=== PATIENT | male | born 1985 | race Two or more races ===

== ENCOUNTER 2024-06-22 12:09 | Emergency (ER) | payer MEDICAID, SELFPAY ==
[2024-06-22 12:17] VITALS: BP 110/76; PULSE 76; RESP 18; TEMP 36.6; O2SAT 98; BMI 26.4
--- NOTE | 2024-06-22 12:23 | EDNOTE_ITS ---
ED Medical Clearance RME/HPI General Chief complaint: GI Bleed Stated complaint: MEDICAL CLEARANCE Time Seen by Provider: 06/22/24 12:14 Arrival date/time: 06/22/24 12:09 RME / HPI RME / HPI Narrative: This section includes all my notes and documentations, including HPI, PE, and ED course.? Elroy Reaves MD HPI: 39 year old male with no stated medical history presents to the ED BIB [facility] for medical clearance today. Patient reports bright red blood on tissues for about a month after wiping. Denies any associated abdominal pain, nausea, vomiting, or diarrhea. Denies taking medications on a daily basis, use of NSAIDs or blood thinners. Here for medical clearance for senior living. No other complaints. ROS: All negative except as documented in HPI. Physical Exam: General:? Alert and oriented.??No acute distress. Eyes:? Conjunctivae and lids clear.?? ENT:? No nasal congestion.?? Neck:? Supple.?? Lungs:? No respiratory distress.?? Abdomen:? Soft and nontender.?? Rectal: External hemorrhoids noted, not thrombosed. Skin:? Warm and dry.?? Neuro:? Alert and oriented X 3.?? I reviewed all diagnostic test results. Blood tests unremarkable. At this point, diagnoses include?hemorrhoids. Recommended conservative treatment and more outpatient workup. Based on my best medical judgment, made decision to medically cleared the patient for senior living and no further evaluation or treatment indicated at this time.? Patient understands and agrees to the discharge instructions customized and printed, see below. Discharge instructions from Dr. Reaves: ?After evaluation, your symptoms are due to hemorrhoids.? There is no emergency. ?Use Anusol suppositories as prescribed to help heal your hemorrhoids. ?During bowel movements, avoid pushing too hard which can cause hemorrhoids. ?To help prevent hard stools, increase oral fluid and maintain clear urine (if dark or yellow, increase oral fluid).? And increase every day exercising and eating fresh fruits and fresh vegetables. ?See a private doctor on 06/24/2024 or whenever you are released from senior living for recheck and further care. To make sure there is no serious intra-abdominal condition, ask for help with more investigation not available here in the ER. Such as EGD or scoping the stomach, colonoscopy or scoping the colon, and referral to see systems analyst developer. ?Seek immediate medical care with worsening or with any concerns. Related Information Previous Rx's ?Medication ?Instructions ?Recorded hydrocortisone acetate 25 mg 25 mg SC BID #24 ea 06/22 rectal suppository (Anusol-HC) Allergies Allergy/AdvReac Type Severity Reaction Status Date / Time aspirin Allergy Intermediate Swelling Verified 06/22/24 12:37 of Lip/Tongue/Throat Review of Systems Review of Systems Systems Reviewed: All systems reviewed, normal except as documented ED Exam Narrative Physical exam: As noted in HPI Course Quality Measures none Orders Category Date Time Status CBC Stat Lab 06/22/24 13:04 Completed CMP [Comprehensive Metabolic Panel] Stat Lab 06/22/24 13:04 Completed Magnesium Stat Lab 06/22/24 13:04 Completed Path Review Blood Smear Stat Lab 06/22/24 13:04 Completed Vital Signs Vital signs: Vital Signs Temperature 98 F 06/22/24 12:17 Pulse Rate 76 06/22/24 12:17 Respiratory Rate 18 06/22/24 12:17 Blood Pressure 110/76 06/22/24 12:17 Pulse Oximetry (%) 98 06/22/24 12:17 Oxygen Delivery Method Room Air 06/22/24 12:17 Pulse ox is 98% on room air which is adequate. Medical Clearance MDM Narrative MDM Narrative:: Moriah Frazier am scribing for and in the presence of Dr. Reaves. Patient data External records reviewed:: [facility] previous records (Per EMR review, no previous visits for review) Clinical information provided by:: patient and law enforcement ([employer] ) Social determinants that could affect healthcare access:: none Patient has the following chronic illnesses:: None How is presenting disease/condition affected by chronic disease/condition?: no chronic disease Evaluation data The following diagnostics were reviewed and interpreted by me:: lab results Lab and/or radiology exams considered but not ordered:: None Interpretation Summary: Normal diagnostics Medications / Prescriptions Medications or Prescriptions considered but not ordered:: none Medication administrations:: None Consultations Consultation(s) initiated? (list below): No Diagnosis Medical Clearance Differential Diagnosis: other (Hemorrhoids, rectal bleeding, GI bleed) Most likely diagnosis given after review of the tests above:: Hemorrhoids Admission Indicated Admission indicated?: not indicated Explain why admission is indicated or not indicated:: Does not meet admission criteria Admission Request Was there a request for admission?: No Disposition Plan Disposition Plan: Discharge Discharge Attestation Discharge Attestation: The patient and all family members were given an opportunity to ask questions and understood the discharge instructions. Discharge instructions specifically effects, indications for sooner follow up or return to the emergency department, and the expected course of current diagnosis. Patient condition: Stable Discharge Plan Plan Patient Disposition: [facility]/Court/Law Patient condition on transfer: Stable Prescriptions/Referrals Prescriptions/Med Rec: New hydrocortisone acetate [Anusol-HC] 25 mg suppository 25 mg SC BID Qty: 24 0RF Referrals: No Primary/Family,Physician [Primary Care Provider] - In 1 week Problem List Clinical Impression: Hemorrhoids Patient/Caregiver Discharge Instructions Discharge Activity: activity as tolerated Education Materials: ED Hemorrhoids Additional Instructions: Discharge instructions from Dr. Reaves: ?After evaluation, your symptoms are due to hemorrhoids.? There is no emergency. ?Use Anusol suppositories as prescribed to help heal your hemorrhoids. ?During bowel movements, avoid pushing too hard which can cause hemorrhoids. ?To help prevent hard stools, increase oral fluid and maintain clear urine (if dark or yellow, increase oral fluid).? And increase every day exercising and eating fresh fruits and fresh vegetables. ?See a private doctor on 06/24/2024 or whenever you are released from senior living for recheck and further care. To make sure there is no serious intra-abdominal condition, ask for help with more investigation not available here in the ER. Such as EGD or scoping the stomach, colonoscopy or scoping the colon, and referral to see systems analyst developer. ?Seek immediate medical care with worsening or with any concerns. Print Language: Japanese
[2024-06-22 12:57] VITALS: BP 109/72; PULSE 70; RESP 17; TEMP 37.3; O2SAT 98
[2024-06-22 13:14] LABS: Basophils % (Auto) 0 % (0-2.5); Eosinophils % (Auto) 0 % (0-10); Hematocrit 41.8 % (41.0-53.0); Hemoglobin 13.3 g/dL (13.5-16.0); Immature Granulocytes % (Auto) 0 % (0-0); Immature Granulocytes Auto 0.04 Thou/mm3 (0.00-0.00); Lymphocytes # (Auto) 0.9 Thou/mm3 (1.0-4.8); Lymphocytes % (Auto) 8 % (10-50); Mean Corpuscular HGB Conc 31.8 g/dl (31.0-37.0); Mean Corpuscular Hemoglobin 19.2 pg (25.0-35.0); Mean Corpuscular Volume 60 fL (80-100); Monocytes # (Auto) 0.8 Thou/mm3 (0.0-0.8); Monocytes % (Auto) 7 % (0-12); Neutrophils # (Auto) 10.5 Thou/mm3 (1.8-7.7); Neutrophils % (Auto) 85 % (37-80); Nucleated Red Blood Cell % 0 /100 WBC (0); Platelet Count 309 Thou/mm3 (140-440); RDW Standard Deviation 31.1 fL (35.1-43.9); Red Blood Count 6.94 Miln/mm3 (4.50-5.90); White Blood Count 12.4 Thou/mm3 (3.8-10.6)
[2024-06-22 13:37] LABS: Alanine Aminotransferase 19 U/L (10-49); Albumin, Serum 4.3 gm/dL (3.5-5.0); Albumin/Globulin Ratio 1.7 (1.2-2.2); Alkaline Phosphatase 60 U/L (46-116); Anion Gap 6 (7-16); Aspartate Amino Transferase 20 U/L (0-34); BUN/Creatinine Ratio 9 Ratio (12-20); Bilirubin,Total 0.5 mg/dL (0.3-1.2); Blood Urea Nitrogen 9 mg/dL (9-23); Calcium 9.5 mg/dL (8.3-10.6); Calcium (Corrected) 9.5 mg/dL (8.5-10.1); Carbon Dioxide 23.7 mMol/L (20.0-31.0); Chloride 108 mMol/L (98-107); Estimated Creatinine Clearance 109.9 mL/min (>60); Globulin 2.6 gm/dL (2.3-3.5); Glucose 112 mg/dL (74-106); Osmolality,Calculated 275 (275-295); Potassium 3.8 mMol/L (3.4-5.1); Sodium 138 mMol/L (136-145); Total Protein 6.9 gm/dL (5.7-8.2); eGFR > 60 See Note
[2024-06-22 13:47] LABS: Path Review Blood Smear Sent to Pathologist
[2024-06-22 14:15] VITALS: BP 114/65; PULSE 69; RESP 18; TEMP 37.1
== END 2024-06-22 14:20 ==
PROVIDERS: Emergency Provider Emergency Medicine
DX: Z02.89 Encounter for other administrative examinations (principal); K64.4 Residual hemorrhoidal skin tags
CPT/HCPCS: 36415; 80053; 83735; 85025; 99283